=== PATIENT | female | born 1970 | race Caucasian/White ===

== ENCOUNTER 2018-07-09 13:12 | Outpatient (REF) | payer MEDICAID, SELFPAY ==
[2018-07-09 22:19] LABS: HCT 39.5 % (36.0-46.0); HGB 12.9 g/dL (12.0-15.5); Mean Corp. HGB Concentration 32.7 g/dL (32.0-36.0); Mean Corpuscular Hemoglobin 30.1 pg (27.0-33.0); Mean Corpuscular Volume 92.1 fL (80-95); Mean Platelet Volume 11.4 fL (8.0-11.0); Platelet Count 199 x1000/uL (130-400); RBC 4.29 m/cumm (4.00-5.20); RBC Distribution Width 13.7 % (11.7-14.6); White Blood Cell Count 5.53 k/cumm (4.4-10.8)
[2018-07-09 22:46] LABS: BUN 12 mg/dL (7-18); CREATININE 0.64 mg/dL (0.55-1.02); Calcium 8.4 mg/dL (8.5-10.1); Chloride 106 mmol/L (98-107); Glucose 88 mg/dL (70-100); Sodium 140 mmol/L (136-145); TSH (W/Ref FT4) 1.14 uIU/mL (0.358-3.74)
== END 2018-07-09 13:32 ==
LOC: NCHCN 13:12
PROVIDERS: PCP Nurse Practitioner Family; Visit Provider Family Medicine
DX: I49.9 Cardiac arrhythmia, unspecified (principal)
CPT/HCPCS: 80048; 85027; 83735; 84443

== ENCOUNTER 2020-08-22 15:23 | Outpatient (REF) | payer MEDICAID, SELFPAY ==
--- NOTE | 2020-08-22 13:45 | PAPFT_PTH ---
PATIENT: Oralia Joe LOC: [facility] U#:[id number] AGE/SX: 49/F ROOM: RE08/22/[address]: Maldonado Aleman : 1970 BED: DIS: 08/22/2020 SPEC #: [id number] RECD: 08/23/20 13:00 STATUS: MICKI REQ #: [id number] CHRISTEN: 08/22/20 13:[address]: Maldonado Aleman DEPT: [facility] Cytology RECD BY: Christina Del Valle ENTERED: 08/23/20 13:01 SP TYPE: PAPFT OTHR DR: Ariela Wall Tissues: 1 - CX/ENDOCX FOR PAP SMEARS Procedures: PAP THIN PREP/[facility] Screening Comments: [id number] (UNSATISFACTORY FOR EVALUATION)
== END 2020-08-22 15:43 ==
LOC: NCHCN 15:23
PROVIDERS: PCP Nurse Practitioner Family; Visit Provider Family Medicine
DX: Z12.4 Encounter for screening for malignant neoplasm of cervix (principal); R87.615 Unsatisfactory cytologic smear of cervix
CPT/HCPCS: 88142

== ENCOUNTER 2020-11-13 15:51 | Outpatient (REF) | payer MEDICAID, SELFPAY ==
--- NOTE | 2020-11-13 15:15 | PAPFT_PTH ---
PATIENT: Oralia Joe LOC: [facility]#:[id number] AGE/SX: 50/F ROOM: RE11/13/[address]: Elizabeth Sanchez : 1970 BED: DIS: 11/13/2020 SPEC #: [id number] RECD: 11/14/20 12:58 STATUS: MICKI REStefania #: [id number] CHRISTEN: 11/13/20 15:[address]: Elizabeth Sanchez DEPT: [facility] Cytology RECD BY: Christina Del Valle ENTERED: 11/14/20 12:58 SP TYPE: PAPFT OT DR: Ariela Wall Tissues: 1 - CX/ENDOCX FOR PAP SMEARS Procedures: PAP THIN PREP/[facility] Screening HPV DNA PROBE Comments: [id number]
== END 2020-11-13 16:11 ==
LOC: NCHCN 15:51
PROVIDERS: PCP Nurse Practitioner Family; Visit Provider Nurse Practitioner Family
DX: Z12.4 Encounter for screening for malignant neoplasm of cervix (principal); Z11.51 Encounter for screening for human papillomavirus (HPV)
CPT/HCPCS: 88142; 87624

== ENCOUNTER 2021-09-06 12:19 | Outpatient (REF) | payer MEDICAID, SELFPAY ==
[2021-09-06 20:56] LABS: Abs Immature Grans 0.01 10^3/uL (0.0-0.06); Absolute Basophil Count 0.09 10^3/uL (0.0-0.2); Absolute Eosinophil Count 0.46 10^3/uL (0.0-0.7); Absolute Lymphocyte Count 1.69 10^3/uL (1.2-3.4); Absolute Monocyte Count 0.56 10^3/uL (0.1-0.8); Absolute Neutrophil Count 3.69 10^3/uL (1.2-6.7); Basophils % 1.4; Eosinophils % 7.1; HCT 42.8 % (36.0-46.0); HGB 13.4 g/dL (11.2-15.7); Immature Grans % 0.2; MCH 29.5 pg (27.0-33.0); MCHC 31.3 % (32.0-36.0); MCV 94.3 fL (80-95); MPV 11.4 fL (8.0-11.0); Monocytes % 8.6; Neutrophils % 56.7; Nucleated RBC 0 %; Platelet Count 218 10^3/uL (130-400); RBC 4.54 10^6/uL (3.93-5.22); RDW 13.8 % (11.7-14.6); RDW-SD 47.6 fL
[2021-09-06 21:33] LABS: Vitamin D 25 Total 33.6 ng/mL (30-100)
[2021-09-06 21:34] LABS: ALT 31 U/L (14-59); AST 19 U/L (15-37); Albumin 3.7 g/dL (3.4-5.0); Alkaline Phosphatase 53 U/L (46-116); Anion Gap 8.9 mmol/L (3-11); BUN 13 mg/dL (7-18); CO2 28.1 mmol/L (21.0-32.0); CREATININE 0.6 mg/dL (0.55-1.02); Calcium 8.7 mg/dL (8.5-10.1); Chloride 105 mmol/L (98-107); Glucose 67 mg/dL (74-106); Potassium 4.1 mmol/L (3.5-5.1); Sodium 142 mmol/L (136-145); TSH (W/Ref FT4) 1.16 uIU/mL (0.36-3.74); Total Protein 6.5 g/dL (6.4-8.2); Vitamin B12 305 pg/mL (193-986)
[2021-09-08 09:27] LABS: COVID-19 RT-PCR UVMMC Result Negative (Negative)
== END 2021-09-06 12:20 | disposition home or self-care (01) ==
LOC: NCHCN 12:19
PROVIDERS: PCP Nurse Practitioner Family; Visit Provider Family Medicine
DX: R53.83 Other fatigue (principal); R17 Unspecified jaundice; Z20.822 Contact with and (suspected) exposure to COVID-19
CPT/HCPCS: 80053; 82306; U0003; 82607; 84443; 85025

== ENCOUNTER 2022-03-07 20:32 | Outpatient (REF) | payer MEDICAID, SELFPAY ==
[2022-03-07 22:05] LABS: Vitamin B12 444 pg/mL (193-986)
[2022-03-07 22:37] LABS: Vitamin D 25 Total 45.3 ng/mL (30-100)
== END 2022-03-07 20:33 | disposition home or self-care (01) ==
LOC: NCHCN 20:32
PROVIDERS: PCP Nurse Practitioner Family; Visit Provider Family Medicine
DX: E53.8 Deficiency of other specified B group vitamins (principal); E55.9 Vitamin D deficiency, unspecified
CPT/HCPCS: 82306; 82607

== ENCOUNTER 2023-11-11 15:31 | Outpatient (REF) | payer MEDICAID, SELFPAY | END 2023-11-11 15:32 | disposition home or self-care (01) | LOC: NCHCN 15:31 | PROVIDERS: PCP Nurse Practitioner Family; Visit Provider Physician Assistant | DX: R82.998 Other abnormal findings in urine (principal) | CPT/HCPCS: 87086 ==

== ENCOUNTER 2023-12-23 16:05 | Outpatient (REF) | payer MEDICAID, SELFPAY ==
[2023-12-23 21:19] LABS: Anion Gap 8.9 mmol/L (3-11); BUN 17 mg/dL (7-18); CO2 28.1 mmol/L (21.0-32.0); CREATININE 0.7 mg/dL (0.55-1.02); Calcium 9.1 mg/dL (8.5-10.1); Chloride 105 mmol/L (98-107); Estimated GFR 102.71 (mL/min/1.73m2); Glucose 112 mg/dL (74-106); Magnesium 2.3 mg/dL (1.8-2.4); Potassium 4.4 mmol/L (3.5-5.1); Sodium 142 mmol/L (136-145)
[2023-12-23 21:43] LABS: Vitamin D 25 Total 38.6 ng/mL (30-100)
== END 2023-12-23 16:06 | disposition home or self-care (01) ==
LOC: NCHCN 16:05
PROVIDERS: PCP Nurse Practitioner Family; Visit Provider Family Medicine
DX: R53.83 Other fatigue (principal); E55.9 Vitamin D deficiency, unspecified; E61.2 Magnesium deficiency
CPT/HCPCS: 80048; 82306; 83735